=== PATIENT | female | born 1990 | race Caucasian/White ===

== ENCOUNTER 2016-11-24 21:50 | Emergency (ER) | payer OTHER ==
[2016-11-24 21:48] LABS: INFLUENZA A NEG (NEG); INFLUENZA B NEG (NEG)
== END 2016-11-24 22:10 | disposition home or self-care (01) ==
LOC: CFTX 21:50
PROVIDERS: Student in an Organized Health Care Education/Training Program
DX: J11.1 Influenza due to unidentified influenza virus with other respiratory manifestations (principal); F31.9 Bipolar disorder, unspecified; F17.200 Nicotine dependence, unspecified, uncomplicated; Z98.890 Other specified postprocedural states
CPT/HCPCS: 87804; 99282

== ENCOUNTER 2016-12-11 23:59 | Emergency (ER) | payer OTHER | END 2016-12-12 03:10 | disposition home or self-care (01) | LOC: CED 23:59 | DX: J02.9 Acute pharyngitis, unspecified (principal) | CPT/HCPCS: 87651; 99282 ==